=== PATIENT | male | born 1980 | race Caucasian/White ===

== ENCOUNTER 2019-02-20 15:35 | Emergency (ER) | payer OTHER ==
[2019-02-20] MEDS ORDERED: CEPHALEXIN500 M1 PO (17:03)
[2019-02-20 17:15] VITALS: BP 156/101
== END 2019-02-20 17:15 | disposition home or self-care (01) ==
LOC: ED 15:35
DX: S81.012A Laceration without foreign body, left knee, initial encounter (principal); S80.211A Abrasion, right knee, initial encounter; S20.312A Abrasion of left front wall of thorax, initial encounter; R40.2410 Glasgow coma scale score 13-15, unspecified time; V86.56XA Driver of dirt bike or motor/cross bike injured in nontraffic accident, initial encounter; Y93.55 Activity, bike riding

== ENCOUNTER 2019-03-02 18:17 | Emergency (ER) | payer OTHER ==
[~2019-03-02 18:17] MED LIST: CEPHALEXIN500 M1 PO
[2019-03-02 18:40] VITALS: BP 116/67
== END 2019-03-02 18:41 | disposition home or self-care (01) ==
LOC: ED 18:17
DX: Z48.02 Encounter for removal of sutures (principal)

== ENCOUNTER 2023-12-01 18:32 | Emergency (ER) | payer OTHER ==
[~2023-12-01 18:32] MED LIST changes: +Acetaminophen 500 MG TAB PO ONE
== END 2023-12-01 20:18 | disposition home or self-care (01) ==
LOC: ED 18:32
DX: S06.0XAA Concussion with loss of consciousness status unknown, initial encounter (principal); T14.8XXA Other injury of unspecified body region, initial encounter; V89.2XXA Person injured in unspecified motor-vehicle accident, traffic, initial encounter
CPT/HCPCS: 90715